=== PATIENT | female | born 1985 | race African-American/Black ===

== ENCOUNTER 2017-01-17 14:52 | Emergency (ER) | payer MEDICAID ==
[~2017-01-17] VITALS: Ht 162.6 cm; Wt 68.5 kg
[2017-01-17 16:34] VITALS: BP 121/71
== END 2017-01-17 17:18 | disposition home or self-care (01) ==
LOC: ER 14:58
DX: F41.1 Generalized anxiety disorder (principal); R51 Headache; F31.9 Bipolar disorder, unspecified
CPT/HCPCS: 70450; 93005